=== PATIENT | female | born 1985 | race Caucasian/White ===

== ENCOUNTER 2022-06-23 15:03 | Emergency (ER) | payer SELFPAY ==
[~2022-06-23] VITALS: Ht 165.1 cm; Wt 60.0 kg
[2022-06-23 15:09] VITALS: BP 103/69
[2022-06-23] MEDS ORDERED: KETOROLAC 60MG/2ML VIAL IM ONE (18:00)
== END 2022-06-23 18:49 | disposition left against medical advice (07) ==
LOC: ER 15:03
DX: S00.83XA Contusion of other part of head, initial encounter (principal); Y08.89XA Assault by other specified means, initial encounter; Y93.89 Activity, other specified; Y92.89 Other specified places as the place of occurrence of the external cause; Y99.8 Other external cause status; M54.2 Cervicalgia
CPT/HCPCS: 70486; 81025; 99284